=== PATIENT | female | born 1985 | race Caucasian/White ===

== ENCOUNTER 2018-09-09 13:59 | Emergency (ER) | payer OTHER ==
[~2018-09-09] VITALS: Ht 177.8 cm; Wt 155.1 kg
[2018-09-09 14:10] VITALS: BP 118/72
[2018-09-09] MEDS ORDERED: ibuprofen tablet 400 MG TABLET PO ONE (15:55)
[2018-09-09] MEDS ORDERED: ondansetron 4mg rapidly disintigrating tab PO ONE (15:55)
== END 2018-09-09 16:43 | disposition home or self-care (01) ==
LOC: ER 13:59
DX: S06.0X0A Concussion without loss of consciousness, initial encounter (principal); S00.83XA Contusion of other part of head, initial encounter; W21.06XA Struck by volleyball, initial encounter; Y93.68 Activity, volleyball (beach) (court); Y92.89 Other specified places as the place of occurrence of the external cause; Y99.8 Other external cause status
CPT/HCPCS: 70450; 99284; J2405

== ENCOUNTER 2021-12-03 00:33 | Emergency (ER) | payer BC ==
[~2021-12-03] VITALS: Ht 177.8 cm; Wt 155.2 kg
[2021-12-03 03:31] VITALS: BP 116/79
== END 2021-12-03 04:29 | disposition home or self-care (01) ==
LOC: ER 00:35
DX: S50.02XA Contusion of left elbow, initial encounter (principal); S50.01XA Contusion of right elbow, initial encounter; S50.11XA Contusion of right forearm, initial encounter; X58.XXXA Exposure to other specified factors, initial encounter; Y93.89 Activity, other specified; Y92.89 Other specified places as the place of occurrence of the external cause; Y99.8 Other external cause status
CPT/HCPCS: 99282